=== PATIENT | male | born 1935 | race Caucasian/White ===

== ENCOUNTER → 2018-02-16 | Outpatient (CLI) | payer OTHER ==
[~2018-02-16] MED LIST: ACET500T71 PO; ASCO10004 PO; CALC250T PO; DIGO250T PO; GLUC100015 PO; HYDR12.53 PO; MAGNESIUM PO; MSM PO; MULT-208 PO; PSYL0.5215 PO; SAW1CAPS2 PO; SIMV40TA3 PO; SODI100P2 PO; TAMS0.4C2 PO; WARF2.5T PO; WARF5TAB PO
== END ==
LOC: CVU 12:47
PROVIDERS: ATTEND Internal Medicine Cardiovascular Disease
DX: I07.1 Rheumatic tricuspid insufficiency (principal); I35.0 Nonrheumatic aortic (valve) stenosis; I10 Essential (primary) hypertension; Z95.0 Presence of cardiac pacemaker; Z85.46 Personal history of malignant neoplasm of prostate
CPT/HCPCS: 93306

== ENCOUNTER → 2019-09-17 | Outpatient (CLI) | payer MEDICARE ==
[~2019-09-17] MED LIST changes: +ACET500T64 PO; -ACET500T71 PO; +HYDR12.517 PO; -HYDR12.53 PO; -SAW1CAPS2 PO; +SAW1CAPS6 PO
== END | disposition home or self-care (01) ==
LOC: CFH 12:51
PROVIDERS: ATTEND Internal Medicine Cardiovascular Disease
DX: I08.3 Combined rheumatic disorders of mitral, aortic and tricuspid valves (principal); E78.5 Hyperlipidemia, unspecified; Z95.0 Presence of cardiac pacemaker; Z85.46 Personal history of malignant neoplasm of prostate; Z92.3 Personal history of irradiation; Z79.01 Long term (current) use of anticoagulants
CPT/HCPCS: 93306

== ENCOUNTER → 2020-09-07 | Outpatient (CLI) | payer MEDICARE ==
[~2020-09-07] MED LIST changes: +ASCO100018 PO; -ASCO10004 PO; -DIGO250T PO; +DIGO250T3 PO; +SIMV40TA20 PO; -SIMV40TA3 PO; -WARF2.5T PO; +WARF2.5T2 PO; -WARF5TAB PO; +WARF5TAB2 PO
== END | disposition home or self-care (01) ==
LOC: CFH 13:48
PROVIDERS: ATTEND Internal Medicine Cardiovascular Disease
DX: I08.3 Combined rheumatic disorders of mitral, aortic and tricuspid valves (principal)
CPT/HCPCS: 93306